=== PATIENT | male | born 1945 | race African-American/Black ===

== ENCOUNTER 2017-01-10 08:56 | Inpatient (IN) | payer OTHER ==
[~2017-01-10] VITALS: Ht 182.9 cm; Wt 108.7 kg
[2017-01-10] VITALS (14 sets, daily range): BP systolic 74–133; BP diastolic 36–93
--- NOTE | ~2017-01-10 | CATHLAB ---
[facility] [place] [address] INVASIVE PROCEDURE REPORT Name: CARMENAna Davin Room #: 208-P [facility] IN [facility]#: [id number] Admission: 01/10/17 Attend Phys: Dimitry Park, Discharge: Date of : 47 Date of Service: 01/10/17 1113 Report #: [id number] THIS REPORT FOR: //name// CC: Dimitry Kurtz REASON FOR STUDY: Inferior myocardial infarction. DESCRIPTION OF PROCEDURE: The potential benefits and risks of the procedure were discussed at length with the patient who understood. Full written and informed consent was obtained. The patient was brought into the catheterization suite in the setting of an acute inferior myocardial infarction associated with right ventricular involvement, complete heart block and hypotension. The right groin was prepped and draped in a sterile fashion. He was sedated with intravenous Versed. 1% Xylocaine was used as local anesthetic. A 6-[place] sheath was placed in the right femoral artery by the modified Seldinger technique. Left heart catheterization was performed with a 6-[place]an angled pigtail catheter. A single plain ventriculogram was performed in the ZENDEJAS view. Pullback gradients were measured across the aortic valve. Selective coronary angiography was performed with a 6-S[place]an left and right 4 cm Susan coronary catheter. All diagnostic catheters removed. Attention was turned to a complete occlusion of the right coronary. The patient was premedicated with heparin, Integrilin, aspirin and prasugrel. A 0.014-inch Luge wire was used to traverse the distal right coronary occlusion, which was then predilated with a 3.0 x 15 mm Euphora balloon. MARIA ALEJANDRA 3 flow was restored in the vessel. The balloon was removed and the distal right coronary was stented with a 4.0 x 22 mm Resolute medicated stent, postdilated with a 4.0 x 15 mm Trek NC balloon in upwards of 22 atmospheres. MARIA ALEJANDRA 3 flow was restored in the vessel. All catheters removed. Hand injection was performed to the right groin sheath with placement of a Mynx device upon removal of the sheath. The patient remained in excellent condition at the conclusion of the procedure with resolved heart block and hypotension. LEFT HEART HEMODYNAMICS: Left ventricular systolic pressure of 140. Left ventricular end diastolic pressure of 22. Aortic valve, no gradient was present on pullback across the aortic valve. ANGIOGRAPHY: LEFT VENTRICULOGRAM: Ventriculography demonstrated mild inferior wall hypokinesis. The ejection fraction was estimated at 45%. SELECTIVE CORONARY ANGIOGRAPHY: Right coronary: Right coronary exhibited moderate plaquing in its proximal and [facility] [address] [place] [address] INVASIVE PROCEDURE REPORT Name: Ana MORALES Room #: 208-P [facility]#: [id number] Admission: 01/10/17 Attend Phys: Dimitry Park, Discharge: Date of : 47 Date of Service: 01/10/17 1113 Report #: [id number] mid portions. The distal right coronary was occluded. Left main: Left main exhibited mild plaquing. LAD: The LAD had been stented in its mid portion. The stent was widely patent. The distal LAD near the apex exhibited a 95% stenosis. The vessel beyond this was small in caliber. Circumflex: Circumflex was moderate in size and nondominant and comprised of 2 marginal branches. There was a large trifurcating ramus branch, vessel exhibited moderate plaquing. POSTANGIOPLASTY AND STENTING: The distal right coronary was ballooned and then stented with a 4.0 x 22 mm Resolute medicated stent, postdilated close to 4.2 mm with a noncompliant balloon. 0% residual stenosis remained with MARIA ALEJANDRA 3 flow restored in the vessel. SUMMARY: 1. Szul-mm-bufulpmb left ventricular dysfunction with inferior wall hypokinesis. The ejection fraction was estimated at 45%. 2. Mild plaquing of the left main. 3. The LAD exhibited a previously placed stent, which was widely patent (4.0 x 22 mm Resolute). 4. Fras-xr-qjhmqwqm plaquing in the nondominant circumflex. 5. The right coronary was occluded distally and successfully stented with a 4.0 x 22 mm Resolute medicated stent, postdilated to 4.4 mm with a noncompliant balloon. By: 1113 1229 Dimitry Park MD, FACC /nt
--- NOTE | ~2017-01-10 | EKG ---
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
--- NOTE | ~2017-01-10 | EKG ---
[address] [address] ELECTROCARDIOGRAM REPORT Name: Ana MORALES Davin Room #: 208-P ADM IN M.R.#: [id number] Admission: 01/10/17 Attend Phys: Dimitry Park MD, Discharge: Date of : 47 Report #: [id number] THIS REPORT FOR: //name// 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 Electronically Signed On 01-11-2017 22:22:20 CDT by Magdiel Ellis [email or web address] <ELECTRONICALLY SIGNED> By: Magdiel Ellis MD 01/11/17 2222 0858 0858 MD SHEBA Vidales
--- NOTE | ~2017-01-10 | EKG ---
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 : 1945 Requested By: Micah Garcia Order Number: [id number] MD: Magdiel Ellis Measurements Intervals [place] Rate: 102 P: 20 GA: 182 QRS: -37 QRSD: 81 T: -61 QT: 364 QTc: 475 Interpretive Statements Sinus tachycardia Abnormal R-wave progression, late transition Inferior infarct, age indeterminate Baseline wander in lead(s) V3 Compared to ECG 01/11/2017 07:46:41 Sinus rhythm no longer present Myocardial infarct finding still present Electronically Signed On 01-14-2017 9:50:54 CDT by Magdiel Ellis [email or web address] <ELECTRONICALLY SIGNED> By: Magdiel Ellis MD 01/14/17949 55 55 Magdiel Ellis MD /EPI
--- NOTE | ~2017-01-10 | D ---
[facility] [place] [address] [place] [address] DISCHARGE SUMMARY Name: Ana MORALES Room #: 208-P [facility] IN M.R.#: [id number] Admission: 01/10/17 Attend Phys: Dimitry Park MD, Discharge: 01/13/17 Date of : 47 Report #: [id number] THIS REPORT FOR: //name// CC: Dimitry Park Juan R Kurtz FINAL DIAGNOSES: 1. Acute inferior wall myocardial infarction, status post angioplasty. 2. Transient heart block. 3. Hypertension. 4. Hypercholesterolemia. HOSPITAL COURSE: The patient presented with chest pains, diagnosed with an acute inferior wall myocardial infarction. He did have heart block during his initial presentation. He was taken to the cardiac rd lab technician with Dr. Park. He was found to have a patent LAD stent. There was a severe stenosis in the apical LAD, medical therapy was recommended. The RCA was occluded, undergoing placement of a drug-eluting stent. His heart block resolved and he has remained hemodynamically stable on the telemetry floor. He did have some atypical shoulder pain and chest pain post-procedure. He has been ambulating on the floor without any complaints. FINAL DISPOSITION: He will continue with the aspirin 81 mg, Brilinta 90 mg twice a day, Lopressor 25 mg twice a day, losartan 25 mg daily, Lipitor 40 mg daily. He is given instructions for followup in the office in 2 weeks' time. <ELECTRONICALLY SIGNED> By: Micah Garcia MD 01/14/17 0806 0855 1145 Micah Garcia MD /maikel
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
--- NOTE | ~2017-01-10 | 2DMMODE ---
[facility] [address] [place] [address] 2 D/M-MODE ECHOCARDIOGRAM Name: Ana MORALES Room #: 208-P [facility] IN [facility]#: [id number] Admission: 01/10/17 Attend Phys: Dimitry Park, Discharge: Date of : 47 Date of Service: 01/12/17 1005 Report #: [id number] THIS REPORT FOR: //name// APPROVED REPORT Study performed: 01/12/2017 08:39:02 EXAM: Comprehensive 2D, Doppler, and color-flow Echocardiogram Patient Location: Echo lab Room #: 208 Blood Pressure: 156/95 mmHg HR: 88 bpm Other Information Study Quality: Adequate Indications CAD Patient states previous CA, stent x1 2D Dimensions RVDd: 34.21 mm LVEF(%): 48.31 (>50%) IVSd: 12.40 (7-11mm) LVOT Diam: 21.84 (18-24mm) LVDd: 42.79 mm PWd: 12.31 (7-11mm) Ascending Ao: 34.02 (22-36mm) LVDs: 32.48 (25-40mm) Aortic Root: 32.16 mm IVC: 11.00 mm Elkins's LVEF: 48.31 % Volumes Left Atrial Volume (Systole) Single Plane 4CH: 36.87 mL Single Plane 2CH: 32.81 mL LA ESV Index: 16.00 mL/m2 Aortic Valve AoV Peak Pavan.: 1.46 m/s AO Peak Gr.: 8.57 mmHg LVOT Max P.78 mmHg LVOT Max V: 0.83 m/s GAYLE Vmax: 2.13 cm2 Mitral Valve E/A Ratio: 0.[address] [facility] [address] [place] [address] 2 D/M-MODE ECHOCARDIOGRAM Name: MORALESAna Davin Room #: 208-P [facility] IN [facility]#: [id number] Admission: 01/10/17 Attend Phys: Dimitry Park, Discharge: Date of : 47 Date of Service: 01/12/17 1005 Report #: [id number] MV Decel. Time: 194.62 ms MV E Max Pavan.: 0.64 m/s MV A Pavan.: 1.19 m/s MV PHT: 56.44 ms IVRT: 138.41 ms Pulmonary Valve PV Peak Pavan.: 1.03 m/s PV Peak Gr.: 4.21 mmHg Pulmonary Vein P Vein S: 50.5 m/s P Vein A: 30.35 m/s P Vein D: 59.4 m/s P Vein A Dur.: 107.3 msec Tricuspid Valve RAP Estimate: 5.00 mmHg Left Ventricle The left ventricle is normal size. Regional wall motion abnormalities are noted. Borderline concentric left ventricular hypertrophy. There is no ventricular septal defect visualized. Left ventricular systolic function is mildly decreased. No left ventricle thrombus noted on this study. LVEF is 45-50%. Grade I - abnormal relaxation pattern. Right Ventricle The right ventricle is normal size. There is normal right ventricular wall thickness. The right ventricular systolic function is normal. Atria The left atrium size is normal. The interatrial septum is intact with no evidence for an atrial septal defect. The right atrium size is normal. Aortic Valve The Aortic valve is sclerotic. No aortic regurgitation is present. There is no aortic valvular vegetation. There is no aortic valvular stenosis. Mitral Valve The mitral valve is normal in structure. Trace mitral regurgitation. There is no evidence of mitral valve vegetations. No evidence of mitral valve stenosis. There is no evidence of mitral valve prolapse. Tricuspid Valve [address] [address] 2 D/M-MODE ECHOCARDIOGRAM Name: Ana MORALES Room #: 208-P [facility]#: [id number] Admission: 01/10/17 Attend Phys: Dimitry Park, Discharge: Date of : 47 Date of Service: 01/12/17 1005 Report #: [id number] The tricuspid valve is normal in structure. There is no tricuspid valve stenosis. Trace tricuspid regurgitation. There is no tricuspid valve vegetations. Pulmonic Valve The pulmonary valve is normal in structure. There is no pulmonic valvular stenosis. Trace pulmonic regurgitation. There is no pulmonic valve vegetations. Great Vessels The aortic root is normal in size. The ascending aorta is normal in size. IVC is normal in size and collapses >50% with inspiration. The pulmonary artery is normal. Pericardium There is no pericardial effusion. There is no pleural effusion. <Conclusion> The left ventricle is normal size. Regional wall motion abnormalities are noted. LVEF is 45-50%. The Aortic valve is sclerotic. The mitral valve is normal in structure. Trace mitral regurgitation. The tricuspid valve is normal in structure. Trace tricuspid regurgitation. Trace pulmonic regurgitation. <ELECTRONICALLY SIGNED> By: Alvino Ceballos MD 01/12/17 1005 1005 1005 Alvino Ceballos MD /INF
[~2017-01-10 08:56] MED LIST: AGGRENOX 25 MG1 EACH PO; ASPIRIN325 PO; CLOPIDOGREL75 MG PO; FLEXERIL PO; IBUPROFEN 200200 M1; IBUPROFEN 200200 M1 PO; LIPITOR 10 MG10 M1 PO; LISINOPRIL10 MG PO; LOPRESSOR25 PO; TOPROL XL25 MG PO
[2017-01-10 09:11] LABS: POC CA IONIZED 4.5 mg/dL (4.5-5.3); POC CREATININE 1.2 mg/dL (0.6-1.3); POC HEMOGLOBIN 15.6 g/dL (14.0-18.0)
[2017-01-10 09:28] LABS: HEMATOCRIT 44.8 % (42.0-52.0); HEMOGLOBIN 15.2 gm/dL (14.0-18.0); MCH 33.3 pg (26.0-34.0); MCHC 33.9 g/dL (28.0-37.0); MCV 98.2 fL (80.0-100.0); PLATELET COUNT 166 thou/uL (150-400); RBC 4.56 mil/uL (4.50-6.00); RDW 14.2 % (10.5-14.5); WBC 6.4 thou/uL (4.0-11.0)
[2017-01-10] MEDS ORDERED: COZAAR 25 MG TA25 M1 PO (09:31)
[2017-01-10] MEDS ORDERED: RANEXA500 MG PO (09:31)
[2017-01-10 09:33] LABS: ANION GAP 9 mmol/L (7-16); BUN 21 mg/dL (7-18); CALCIUM 8.2 mg/dL (8.5-10.1); CHLORIDE 107 mmol/L (98-107); CO2 23 mmol/L (21-32); CREATININE 1.3 mg/dL (0.7-1.3); GLUCOSE 121 mg/dL (74-106); POTASSIUM 4.1 mmol/L (3.5-5.1); SODIUM 139 mmol/L (136-145)
[2017-01-10 09:39] LABS: MANUAL DIFF YES
[2017-01-10 09:44] LABS: ALBUMIN 3.6 g/dL (3.4-5.0); ALKALINE PHOSPHATASE 62 U/L (46-116); MAGNESIUM 1.8 mg/dL (1.8-2.4); NT-PRO BRAIN NAT PEPTIDE 123 pg/mL (<300); SGOT 26 U/L (15-37); SGPT 25 U/L (30-65); TOTAL BILIRUBIN 0.4 mg/dL (<0.1-1.0); TOTAL PROTEIN 6.8 g/dL (6.4-8.2); TROPONIN-I < 0.04 ng/mL (<0.04-0.07)
[2017-01-10 09:45] LABS: APTT 23.7 Seconds (24.5-32.8); PROTIME 10.8 Seconds (9.3-11.4)
[2017-01-10 09:52] LABS: ABSOLUTE NEUTROPHILS 3.4 thou/uL (1.4-8.2); ANISOCYTOSIS 1+; TOTAL CELL COUNT 100
[2017-01-11 00:15] VITALS: BP 128/79
[2017-01-11 03:00] VITALS: BP 131/76
[2017-01-11 03:03] VITALS: BP 131/76
[2017-01-11 03:10] LABS: HEMATOCRIT 41.1 % (42.0-52.0); HEMOGLOBIN 13.7 gm/dL (14.0-18.0); MCH 32.9 pg (26.0-34.0); MCHC 33.4 g/dL (28.0-37.0); MCV 98.4 fL (80.0-100.0); RBC 4.18 mil/uL (4.50-6.00); RDW 14.4 % (10.5-14.5)
[2017-01-11 03:27] LABS: ANION GAP 7 mmol/L (7-16); BUN 18 mg/dL (7-18); CALCIUM 7.9 mg/dL (8.5-10.1); CHLORIDE 107 mmol/L (98-107); CHOLESTEROL 122 mg/dL (<200); CO2 25 mmol/L (21-32); CREATININE 1.2 mg/dL (0.7-1.3); GLUCOSE 98 mg/dL (74-106); HDL CHOLESTEROL 29 mg/dL (>40); LDL CHOLESTEROL 73 mg/dL (<100); POTASSIUM 3.9 mmol/L (3.5-5.1); SODIUM 139 mmol/L (136-145); TC:HDL 4.2 Ratio (Not establshd); TRIGLYCERIDE 102 mg/dL (<150); VLDL 20 mg/dL (<40)
[2017-01-11 03:36] LABS: SERUM ASSESSMENT Clear
[2017-01-11 08:33] VITALS: BP 133/89
[2017-01-11 17:45] VITALS: BP 151/89
[2017-01-11 19:58] VITALS: BP 145/85
[2017-01-12 03:53] VITALS: BP 139/93
[2017-01-12 07:15] VITALS: BP 156/95
[2017-01-12 08:00] VITALS: BP 156/95
[2017-01-12 11:10] VITALS: BP 138/82
[2017-01-12 15:55] VITALS: BP 138/83
[2017-01-12 19:35] VITALS: BP 139/92
[2017-01-13 04:07] LABS: HEMATOCRIT 41.6 % (42.0-52.0); HEMOGLOBIN 14.1 gm/dL (14.0-18.0); MCH 33.2 pg (26.0-34.0); MCHC 33.9 g/dL (28.0-37.0); MCV 97.8 fL (80.0-100.0); RBC 4.25 mil/uL (4.50-6.00); RDW 13.7 % (10.5-14.5); WBC 9.8 thou/uL (4.0-11.0)
[2017-01-13 04:10] LABS: CALCIUM 8.6 mg/dL (8.5-10.1); CREATININE 1.2 mg/dL (0.7-1.3); POTASSIUM 3.7 mmol/L (3.5-5.1)
[2017-01-13 04:22] VITALS: BP 112/78
[2017-01-13 08:13] VITALS: BP 128/83
[2017-01-13] MEDS ORDERED: LOPRESSOR25 PO (08:38)
[2017-01-13] MEDS ORDERED: ASPIR 8181 MG PO (08:38)
[2017-01-13] MEDS ORDERED: BRILINTA90 MG PO (08:40)
[2017-01-13 09:44] VITALS: BP 128/83
== END 2017-01-13 12:35 | disposition home or self-care (01) | DRG 247 ==
LOC: ER 08:56 → 2N 09:32 → EROBS 09:46 → 2N 09:46
PROVIDERS: Emergency Medicine; Internal Medicine; Internal Medicine Cardiovascular Disease
PROC: B2151ZZ Fluoroscopy of Left Heart using Low Osmolar Contrast (ICD-10-PCS; principal; 2017-01-10)
PROC: 027034Z Dilation of Coronary Artery, One Artery with Drug-eluting Intraluminal Device, Percutaneous Approach (ICD-10-PCS; principal; 2017-01-10)
PROC: B2111ZZ Fluoroscopy of Multiple Coronary Arteries using Low Osmolar Contrast (ICD-10-PCS; principal; 2017-01-10)
PROC: 4A023N7 Measurement of Cardiac Sampling and Pressure, Left Heart, Percutaneous Approach (ICD-10-PCS; principal; 2017-01-10)
DX: I21.11 ST elevation (STEMI) myocardial infarction involving right coronary artery (principal); I47.1 Supraventricular tachycardia; I44.2 Atrioventricular block, complete; E78.00 Pure hypercholesterolemia, unspecified; E87.5 Hyperkalemia; I25.10 Atherosclerotic heart disease of native coronary artery without angina pectoris; I25.5 Ischemic cardiomyopathy; I10 Essential (primary) hypertension; E78.5 Hyperlipidemia, unspecified; M19.90 Unspecified osteoarthritis, unspecified site; Z95.5 Presence of coronary angioplasty implant and graft; Z85.46 Personal history of malignant neoplasm of prostate; Z87.891 Personal history of nicotine dependence; Z83.3 Family history of diabetes mellitus
CPT/HCPCS: 10081

== ENCOUNTER → 2019-08-11 | Outpatient (CLI) | payer OTHER ==
[~2019-08-11] VITALS: Ht 185.4 cm; Wt 99.8 kg
[~2019-08-11] MED LIST changes: +ASPIR 8181 MG PO; +ASPIR-LOW81 MG PO; +BRILINTA90 MG PO; +COZAAR 25 MG TA25 M1 PO; +COZAAR100 MG PO; +EFFIENT10 MG PO; +RANEXA500 MG PO
--- NOTE | 2019-08-12 14:07 | PATH ---
[facility] [place] [address] PATHOLOGY RPT PROCEDURE Name: MORALESAna Room #: REG ROSIE Huynh.#: [id number] Admission: 08/11/19 Date of : 47 Discharge: Report #: [id number] Path Case #: [id number] [facility] Accession Number: [id number] . 01 Material submitted: . PART A: colon - POLYP AT MID-TRANSVERSE COLON. Modifiers: mid, transverse PART B: colon - POLYP AT PROXIMAL ASCENDING. Modifiers: proximal, ascending . 01 Clinical history: . Screening . 02 Diagnosis: A. Polyp, at mid transverse colon, endoscopic biopsy: - Tubular adenoma. - Negative for high-grade dysplasia. . B. Polyp, at proximal ascending colon, endoscopic biopsy: - Tubular adenoma. - Negative for high-grade dysplasia. . (IUV:jeannie; 08/12/2019) MBR 08/12/2019 1330 Local . 02 Electronically signed: . Sandra Esteban MD, Pathologist NPI- [id number] . 01 Gross description: . A. Received in formalin labeled "Ana Morales, polyp at mid transverse colon," are 4 segments of stephens soft tissue measuring 1.0 x 0.9 x 0.3 cm in aggregate dimensions and ranging from 0.3 to 0.6 cm in maximum dimension. The specimen is submitted entirely in cassette A1. . B. Received in formalin labeled "Ana Morales, polyp at proximal ascending," are multiple segments of stephens soft tissue measuring 2.0 x 0.6 x 0.3 cm in aggregate dimensions. The specimen is filtered and entirely submitted in cassette B1. (TSD; 08/11/2019) TOB/TOB 08/11/20191951 Local . 02 Pathologist provided ICD-10: D12.3, D12.2 . 02 CPT . 048097, 200820 Specimen Comment: A courtesy copy of this report has been sent to [phone], [phone], [place] [address] PATHOLOGY RPT PROCEDURE Name: Ana MORALES [facility] [id number] Admission: 08/11/19 Date of : 47 Discharge: Report #: [id number] Path Case #: [id number] Specimen Comment: [id number] Specimen Comment: Report sent to / DR MALIK Performed at: [address], [place], [place] [id number] MD Renan Small MD Phone: [phone] Performed at: [address] [id number] MD Sandra Esteban MD Phone: [phone]
--- NOTE | 2019-08-12 17:14 | P ---
[facility] [place] [address] PROCEDURE REPORT Name: CARMENAna Room #: REG [facility]#: [id number] Admission: 08/11/19 Attend Phys: Jarret Drake MD Discharge: Date of : 47 Report #: [id number] THIS REPORT FOR: //name// CC: Jarret Kurtz DATE OF SERVICE: 08/11/2019 BRIEF HISTORY: The patient is a 74-year-old male for average-risk screening colonoscopy. It has been many more than 10 years since his last colonoscopy. PREOPERATIVE DIAGNOSIS: Average-risk screening colonoscopy. POSTOPERATIVE DIAGNOSES: 1. Colon polyps x 2. 2. Internal hemorrhoids. MEDICATIONS: Deep sedation with propofol per Anesthesia. SPECIMENS: 1. Mid transverse colon polyp. 2. Polyp from proximal ascending colon. ESTIMATED BLOOD LOSS: 3 mL. PROCEDURE: Colonoscopy to cecum and terminal ileum with snare polypectomy and biopsy. FINDINGS: Prior to propofol sedation, procedure of colonoscopy discussed with the patient as well as potential risks and its complications. He indicates he understands and desires to proceed. DESCRIPTION OF PROCEDURE: With the patient in left lateral decubitus position, digital examination was completed, which revealed no abnormalities. Subsequently, the Olympus video colonoscope was introduced in the rectum, advanced under direct vision to the cecum, done with minimal difficulty. The cecum was identified by the ileocecal valve and the appendiceal orifice. I was able to visualize the distal segment of terminal ileum, which was inspected and noted to be unremarkable. At that point, the scope was slowly withdrawn and careful circumferential views obtained. Upon slow withdrawal of the scope, there were some limitations of the prep. However, we were able to irrigate and remove most of this material and overall a good prep was obtained after cleanup. The mucosa was within normal limits, normal vascular pattern, normal light reflex. As we withdrew the scope, an 8-mm sessile polyp was seen in the proximal ascending colon. This was removed by cold snare polypectomy. Scope [facility] [address] [place] [address] PROCEDURE REPORT Name: Ana MORALES Room #: REG [facility]#: [id number] Admission: 08/11/19 Attend Phys: Jarret Drake MD Discharge: Date of : 47 Report #: [id number] was further withdrawn and no additional abnormalities were noted in the mid transverse colon, at which point a diminutive polyp was seen and removed with biopsy forceps. The scope was withdrawn further through the remainder of the colon and no additional neoplastic lesions were seen. The mucosa was within normal limits, normal vascular pattern, normal light reflex. Scope was withdrawn in the rectum, no abnormalities were seen. However, upon retroflexion, moderate internal hemorrhoids were seen. Scope was withdrawn. The patient tolerated the procedure well. CONDITION OF THE PATIENT UPON DISCHARGE: Following procedure, the patient was drowsy, arousable, and conversant and will be discharged to home when fully ambulatory. INSTRUCTIONS TO THE PATIENT AND FAMILY AT THE TIME OF DISCHARGE: two polyps are identified. We will follow up on pathology, but they do have an adenomatous appearance. I would suggest return in 5 years for followup colon exam. Last colonoscopy was more than 10 years ago. Withdrawal time from the cecum was 16 minutes 57 seconds. <ELECTRONICALLY SIGNED> By: Jarret Drake MD 08/12/19 1714 1038 1207 Jarret Drake MD /nt
== END | disposition home or self-care (01) ==
LOC: GI 08:33
DX: Z12.11 Encounter for screening for malignant neoplasm of colon (principal); D12.2 Benign neoplasm of ascending colon; D12.3 Benign neoplasm of transverse colon; K64.8 Other hemorrhoids; I10 Essential (primary) hypertension; E78.5 Hyperlipidemia, unspecified; I25.2 Old myocardial infarction; I73.9 Peripheral vascular disease, unspecified; Z85.528 Personal history of other malignant neoplasm of kidney; Z98.41 Cataract extraction status, right eye; Z98.42 Cataract extraction status, left eye; Z79.899 Other long term (current) drug therapy; Z86.73 Personal history of transient ischemic attack (TIA), and cerebral infarction without residual deficits; Z87.891 Personal history of nicotine dependence; Z85.46 Personal history of malignant neoplasm of prostate
CPT/HCPCS: 62110; 62900

== ENCOUNTER → 2020-01-23 | Outpatient (CLI) | payer OTHER | LOC: SJCVC 10:40 | DX: R94.31 Abnormal electrocardiogram [ECG] [EKG] (principal); I11.9 Hypertensive heart disease without heart failure; I25.10 Atherosclerotic heart disease of native coronary artery without angina pectoris; Z79.899 Other long term (current) drug therapy; Z87.891 Personal history of nicotine dependence ==

== ENCOUNTER → 2020-07-25 | Outpatient (CLI) | payer OTHER | LOC: SJCVCIMAG 09:19 | PROVIDERS: ATTEND Internal Medicine Cardiovascular Disease | DX: R94.31 Abnormal electrocardiogram [ECG] [EKG] (principal); I42.9 Cardiomyopathy, unspecified; R60.9 Edema, unspecified; C64.9 Malignant neoplasm of unspecified kidney, except renal pelvis; I25.10 Atherosclerotic heart disease of native coronary artery without angina pectoris; R42 Dizziness and giddiness; I10 Essential (primary) hypertension; E78.00 Pure hypercholesterolemia, unspecified; Z79.82 Long term (current) use of aspirin; Z79.899 Other long term (current) drug therapy; Z95.5 Presence of coronary angioplasty implant and graft; Z87.891 Personal history of nicotine dependence ==

== ENCOUNTER 2020-12-26 13:00 | Inpatient (IN) | payer OTHER ==
[~2020-12-26] VITALS: Ht 185.4 cm; Wt 99.8 kg
[2020-12-26 14:25] LABS: HEMOGLOBIN 14.8 gm/dL (14.0-18.0); WBC 6.5 thou/uL (4.0-11.0)
[2020-12-26 14:30] LABS: HEMATOCRIT 44.2 % (42.0-52.0); MCH 34.1 pg (26.0-34.0); MCHC 33.4 g/dL (28.0-37.0); MCV 101.9 fL (80.0-100.0); PLATELET COUNT 141 thou/uL (150-400); RBC 4.34 mil/uL (4.50-6.00); RDW 13.8 % (10.5-14.5)
[2020-12-26 14:35] LABS: CALCIUM 8.8 mg/dL (8.5-10.1); CREATININE 1.5 mg/dL (0.7-1.3); POTASSIUM 4.8 mmol/L (3.5-5.1)
[2020-12-26 14:43] LABS: ALBUMIN 3.6 g/dL (3.4-5.0); TOTAL BILIRUBIN 0.5 mg/dL (0.2-1.0); TOTAL PROTEIN 7.3 g/dL (6.4-8.2)
[2020-12-26 14:44] LABS: URINE BILIRUBIN NEGATIVE (Negative); URINE BLOOD TRACE (Negative); URINE CLARITY CLEAR; URINE COLOR YELLOW; URINE GLUCOSE-RANDOM* NEGATIVE (Negative); URINE KETONES NEGATIVE (Negative); URINE LEUKOCYTES-REFLEX NEGATIVE (Negative); URINE NITRITE-REFLEX NEGATIVE (Negative); URINE PROTEIN (DIPSTICK) NEGATIVE (Negative); URINE SPECIFIC GRAVITY 1.015 (1.005-1.035)
[2020-12-26 14:50] LABS: APTT 23.4 Seconds (24.5-32.8); PROTIME 10.9 Seconds (9.3-11.4)
[2020-12-26 15:04] LABS: ABSOLUTE NEUTROPHILS 4.3 thou/uL (1.4-8.2); ANISOCYTOSIS SLIGHT; ATYPICAL LYMPHS 1 %
[2020-12-26 19:16] VITALS: BP 163/88
[2020-12-26 21:41] VITALS: BP 145/79
[2020-12-26 21:46] VITALS: BP 144/83
--- NOTE | 2020-12-27 02:20 | NUR ---
PT ADMITTED TO THE UNIT WITH C/O INTRACTABLE BACK PAIN.PT REPORTS HE FELL ON HIS BACK DOWN 4 STAIRS ON THURSDAY AND HAD NO ISSUES AFTER.HE WAS MOPPING THE FLOOR ON THURSDAY AND WOKEUP YESTERDAY WITH SPASMS IN THE BACK.BACK PAIN COMES AND GOES AND WORSEN BY MOVEMENT.PT IS A/O X2.PT IS ABLE TO TO ANSWER SIMPLE QUESTIONS.PT UNABLE TO SIGN CONSENT FORMS .WILL ENDORSE TO DAY NURSE.IV ACCESS ON RT AC SL.PT SLEEPING MOST OF THE NIGHT AND MOANS OR C/O PAIN WHEN MOVED.WILL CONTINUE TO MONITOR
[2020-12-27 05:43] LABS: CALCIUM 8.7 mg/dL (8.5-10.1); CREATININE 1.5 mg/dL (0.7-1.3); POTASSIUM 4.6 mmol/L (3.5-5.1)
[2020-12-27 07:45] VITALS: BP 166/88
[2020-12-27 07:55] VITALS: BP 166/88
[2020-12-27 15:50] VITALS: BP 146/101
--- NOTE | 2020-12-27 15:52 | NUR ---
PT ADMITTED RELATED TO INTRACTABLE BACK PAIN. CM REVIEWED CHART AND SPOKE WITH CARE TEAM. CM MET WITH PT AND SPOUSE AT BEDSIDE THIS DAY. PT WAS SLEEPING AND PT'S SPOSUE COMPLETED ASSESSMENT. SHE INDICATED THAT THEY RESIDE IN A TRI LEVEL HOUSE WITH NO STEPS TO ENTER BUT 6 STEPS TO KITCHEN LIVING ROOM AREA, AND 6 STEPS TO BEDROOOM LEVEL. SPOUSE INDICATED PT HAS A CANE BUT HADN'T USED IT [facility] [place] [facility]. PT HAD BEEN INDEPEDENT WITH GAIT AND ADLS [facility] [place] [facility]. SPOUSE INDICATED THAT THEY WERE SET UP TO START OP TREATMENT AT [facility] PRIOR TP ADMISSION AND THAT SHE THINKS SHE WOULD PREFER FOR FOR PT TO DC TO THOSE SERVICES UPON DC. CM TO NOTIFY CARE TEAM OF PREFERENCE. PT MAY BE MEDCIALLY STABLE TO DC HOME TOMORROW.
[2020-12-27 15:55] VITALS: BP 146/101
--- NOTE | 2020-12-27 16:47 | NUR ---
PT CARE ASSUMED AT 0700. ASSESSMENTS CHARTED. MEDICATIONS CHARTED. RAC IV. URINAL/BSC. PHYSICAL THERAPY WALKED WITH PT WITH A CANE, BALANCE IMPROVED. PT'S CONCERNED AT FIRST THAT PT WAS NOT WAKING UP FOR HER. THEN SHE WAS CONCERNED THAT PT APPEARED NOT TO RECOGNIZE HER, DESPITE PT HAVING DEMENTIA. MORPINE NOT ADMINISTERED TO PT.
[2020-12-27 20:19] VITALS: BP 116/80
--- NOTE | 2020-12-28 05:15 | NUR ---
Pt. rested quietly at intervals during the night when checked on during frequent rounds. He pulled his iv out and refused to have another one inserted. Mayuri ANTHONY notified and ok to leave iv out. Pt. offers no c/o pain. Bed alarm is on.
[2020-12-28 08:00] VITALS: BP 121/65
[2020-12-28 08:54] VITALS: BP 155/95
[2020-12-28] MEDS ORDERED: BACLOFEN 10MG T10 MG PO (10:47)
[2020-12-28 10:57] VITALS: BP 155/95
--- NOTE | 2020-12-28 11:03 | NUR ---
ASSUMED CARE OF PATIENT AT SHIFT CHANGE; 0700. ASSESSMENT CHARTED. MEDICATIONS ADMINISTERED PER EMAR. BP ELEVATED. PATIENT REFUSED HIS BP MEDICATION THIS A.M. ALONG WITH HIS BACOFLEN. PATIENT DOES C/O BACK PAIN BUT IS REFUSING ALL MEDS THIS A.M. PATIENT IS INCREASINGLY AGITATED AND WANTING TO LEAVE. PATIENT IS WALKING AROUND UNIT LOOKING FOR HIS . WHEN HIS ARRIVED PATIENT KEPT INSISTING ON LEAVING. PROVIDER WAS NOTIFIED OF ALL EVENTS AND WORKING ON DISCHARGE FOR PATIENT. CM WORKING ON SVCS FOR PATIENT WELL. NO OTHER NEEDS VOICED. PATIENT TO DISCHARGE TODAY. IV WAS PULLED LAST NIGHT. WILL CONTINUE TO MONITOR UNTIL DISCHARGE.
[2020-12-28 11:48] VITALS: BP 155/95
--- NOTE | 2020-12-28 13:14 | NUR ---
CARE TEAM INDICATED THAT PT IS MEDICALLY STABLE TO DC HOME THIS DAY WITH HH SERVICES. CM MET WITH PT AND SPOUSE AT BEDSIDE THIS DAY. CM MET WITH PT AND SPOUSE AT BEDSIDE THIS DAY. THEY ARE AGREEABLE TO HH SERICES UPON DC. NO PREFERENCE INDICATED. REFERRAL SENT TO [facility]. THEY ARE ABLE TO ACCEPT PT AND WILL CONTACT HIM TO SET UP SERVICES. SPOUSE TO PROVIDE TRANSPORT HOME. NO OTHER CM INTERVENTION INDICATED. CASE CLOSED.
[2020-12-30] MEDS ORDERED: NAMENDA 5 MG TAB5 M1 PO (20:26)
== END 2020-12-28 12:28 | disposition home health service (06) | DRG 552 ==
LOC: ER 13:00 → 4W 21:24
PROVIDERS: Physician Assistant; ADMIT Hospitalist; ATTEND Hospitalist
DX: M54.9 Dorsalgia, unspecified (principal); E78.5 Hyperlipidemia, unspecified; R26.89 Other abnormalities of gait and mobility; I10 Essential (primary) hypertension; R42 Dizziness and giddiness; F03.90 Unspecified dementia, unspecified severity, without behavioral disturbance, psychotic disturbance, mood disturbance, and anxiety; Z90.5 Acquired absence of kidney; Z85.46 Personal history of malignant neoplasm of prostate; Z95.5 Presence of coronary angioplasty implant and graft; Z98.42 Cataract extraction status, left eye; Z98.41 Cataract extraction status, right eye; I25.2 Old myocardial infarction; Z87.891 Personal history of nicotine dependence; Z79.82 Long term (current) use of aspirin; Z79.899 Other long term (current) drug therapy; W10.8XXA Fall (on) (from) other stairs and steps, initial encounter; Y93.89 Activity, other specified; Y92.89 Other specified places as the place of occurrence of the external cause; Y99.8 Other external cause status
CPT/HCPCS: 10040

== ENCOUNTER 2020-12-30 23:48 | Inpatient (IN) | payer OTHER ==
[~2020-12-30] VITALS: Ht 185.4 cm; Wt 98.6 kg
[~2020-12-30 23:48] MED LIST changes: +BACLOFEN 10MG T10 MG PO; +NAMENDA 5 MG TAB5 M1 PO
[2020-12-31] MEDS ORDERED: BACLOFEN 10MG T10 MG PO (00:20)
[2020-12-31] MEDS ORDERED: ASA81BEC PO (00:21)
[2020-12-31] MEDS ORDERED: LIPITOR40 MG PO (00:21)
[2020-12-31] MEDS ORDERED: COZAAR100 MG PO (00:22)
[2020-12-31] MEDS ORDERED: NAMENDA 5 MG TAB5 M1 PO (00:23)
[2020-12-31 01:07] VITALS: BP 145/92
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
[2020-12-31 10:23] VITALS: BP 149/96
[2020-12-31 12:30] VITALS: BP 149/96
--- NOTE | 2020-12-31 16:48 | NUR ---
Assumed pt care at 0700. pt was Alert and Oriented to person, place and situation. Calm and co-operative with care. Denies si/hi, Denies pain. Assessments completed, vss. Took meds whole, no difficulty noted. participated in groups. There is no sign of acute distress noted upon assessments. Ambulates with walker. Pt was continent of bowel and bladder all through this shift. At time pt is eating dinner. WILL CONTINUE TO MONITOR.
[2020-12-31 19:56] VITALS: BP 114/66
[2020-12-31 20:00] VITALS: BP 114/66
--- NOTE | 2021-01-01 02:26 | NUR ---
PATIENT WAS ASLEEP IN BED WHEN ASSUMED CARE OF PATIENT AT 1900. PATIENT WAS AWAKENED BUT REFUSED ASSESSMENT. HE DID TAKE HIS MEDS AFTER SOME ENCOURAGEMENT. HE STATES THE DR IS GIVING HIM TOO MUCH MEDICATION AND HE DOESN'T NEED IT. HE TOOK HIS MEDS WHOLE WITH WATER. PATIENT WAS GROUCHY FROM BEING WOKE UP. ENCOURAGED HIM TO DRINK MORE WATER BUT HE DECLINED. PT BACK TO SLEEP. HE IS A/0X2. HE DENIES SI/HI/AVH. HE IS WANTING TO DISCHARGE TO HOME. BED IN LOW POSITION AND BED ALARM IS ON. ROUTINE ROUNDS TO ASSESS SAFETY AND STATUS OF PATIENT.
[2021-01-01 09:39] VITALS: BP 117/74
--- NOTE | 2021-01-01 10:56 | NUR ---
New admit [facility] admit with dementia and combativeness. Overweight with BMI 28, no wt changes and eating 75-100% of meals. presents at low nutrition risk
--- NOTE | 2021-01-01 19:28 | NUR ---
0700 ASSUMED CARE OF PATIENT, PATIENT IN BED AT THAT TIME. PATIENT TO DAYROOM AMB WITH WALKER WITH STEADY GAIT. VS 117/74, 73, 18, 97.0, 97%. MEDICATION TAKEN WHOLE WITHOUT DIFFICULTY. DENIES SI/HI, LS CLEAR, BS ACTIVE. NO C/O PAIN. PATIENT HAD VISITORS TODAY AT 1600. PATIENT CALM AND COOPERATIVE. PATIENT PRESENT IN GROUPS.
[2021-01-01 19:32] VITALS: BP 117/60
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
--- NOTE | 2021-01-02 03:57 | NUR ---
01-01-21 CARE TRANSFERRED 1899. LATER PT AAOX4, VSS, RR EVEN AND NONLABORED ON RA, PT DENIES PAIN AND SI/HI/VAH. PT PRESENTS CALM AND COOPERATIVE, BUT IS SLOW TO ARTULICATES WORDS. DURING MEDICATION ADMIN PT REPORTED HE HAD TORN HIS MUSCLE AND SCORED PAIN AT 7 ON 0-10 SCALE, PT HAS SCHEDULE MEDICATION AND PT BED WAS ADJUSTED FOR COMFORT. LATER NOTED PT SLEEPING.
[2021-01-02 13:27] VITALS: BP 143/85
--- NOTE | 2021-01-02 15:37 | NUR ---
JOSS spoke with pt's today to discuss placement. She indicated that she does not have the funding to place pt. JOSS discussed with her Medicaid and asked if she would like pt screened. Tesha said she would. JOSS submitted a request to [email or web address] for pt. SW team will continue to follow pt during his stay on this unit.
--- NOTE | 2021-01-02 15:41 | NUR ---
PATIENT HAS BEEN UP, AND OUT ON THE UNIT, AMBULATE WITH ASSIST OF ROLLER WALKER, GAIT SLOW, AND SLIGHTLY UNSTEADY. PATIENT TOOK ALL MEDICATION THIS MORNING WITH LOTS OF ENCOURAGEMENT FROM THIS COMMERCIAL DRIVER'S LICENSE DRIVER. HE IS EATING MEALS, AND DRINKING FLUID WELL. PATIENT IS FORGETFUL, AND INTERMITTENT CONFUSION NOTED. PATIENT DENIES SUICIDAL/HOMICIDAL IDEATION, HE DENIES DEPRESSION/ANXIETY. NO AGITATION OR AGGRESSIVE BEHAVIOR NOTED AT THIS TIME. PATIENT PARTICIPATES IN GROUP THERAPY. HE DENIES HAVING PHYSICAL PAIN, ORAL FLUID ENCOURAGED TAKES SIPS OF WATER. AFFECT IS FLAT/BLUNTED, MOOD IS CALM, NO SIGN OF ACUTE DISTRESS NOTED AT THIS TIME, WILL MONITOR FOR SAFETY.
[2021-01-02 19:10] VITALS: BP 99/59
--- NOTE | 2021-01-03 05:37 | NUR ---
01-03-21 CARE TRANSFERRED 0 OBSERVED PT SITTING IN DAY ROOM. LATER PT AAOX4, VSS, RR EVEN AND NONLABORED ON RA. PT DENIES OF PAIN AND SI/HI. PT PLEASANT, CALM AND COOPERATIVE. LATER PT BECAME AGITATED WITH A PEER AND RESTAURANT AREA DIRECTOR, ABLE TO DESCLATE, AND PT WAS CONFUSED AND DISORIENTATED. PT WAS ABLE TO REMAIN CALM AND NOTED PT RESTING WITH EYES CLOSED IN RECLINER. ZERO S/S OF ACUTE DISTRESS NOTED, PT WILL CONTINUE TO BE MONITOR PER [facility] PROTOCOL.
[2021-01-03 07:55] VITALS: BP 112/71
[2021-01-03 11:11] LABS: CALCIUM 9.2 mg/dL (8.5-10.1); CREATININE 1.6 mg/dL (0.7-1.3); POTASSIUM 4.9 mmol/L (3.5-5.1)
--- NOTE | 2021-01-03 12:06 | NUR ---
Alert, sitting in day room in [facility] [place] 2[place] When assessed in room he smelled of ketones. Able to stand and walk with assistance to toilet, gait slightly unsteady. When asked name he started rhyming and refused to answer, also refused to answer other orientation questions. Denies SI/HI. Breath sounds clear. Reg HR auscultated. Color pink with brisk capillary refill and palpable peripheral pulses. Dark, toro urine per toilet. Active bowel sounds over soft, flat abdomen. Refused to take meds whole but was compliant with meds crushed in yogurt. Attempted to get BG X 3 without success. Became combative, grabbing and attempting to hit with fist. Calmed down when caregivers stepped away. Ate breakfast independently. Was then very cooperative with BG, 162 post breakfast. Labs later drawn and BG was 106. Dr. Nava here evaluating pt, aware of results.
--- NOTE | 2021-01-03 12:38 | NUR ---
SW sent an email to [employer] to follow-up on the Medicaid request she sent yesterday for pt. SW team will continue to follow pt during his stay on this unit.
[2021-01-03 19:07] VITALS: BP 125/74
--- NOTE | 2021-01-04 04:02 | NUR ---
SITTING IN DAYROOM AT TABLE UPON INITIAL ASSESSMENT THIS PM. DYSHORIC MOOD-RESPONDS MINIMALLY TO GREETING FROM STAFF AND NO NOTED INTERACTION WITH PEERS. REFUSED HS MEDICATIONS STATING "I DON'T WANT THEM" NURSE REAPPROACHED SHORT TIME LATER WITH MEDS CRUSHED IN YOGURT BUT CONTINUES TO REFUSE AND APPEARS SUSPCIOUS OF STAFF-ANGRY FACIAL EXPRESSION STATING "I KNOW WHAT YOU ARE TRYING TO DO-YOU HAD BETTER GET AWAY FROM ME NOW"WHEN ASKED TO GO TO ROOM TO BED TOLD NOTCHING PRESS OPERATOR "THIS IS MY HOUSE I CAN DO WHAT I WANT" AND REFUSES TO LEAVE CHAIR IN DAYROOM-AT THIS TIME IS SITTING IN CHAIR WITH CHIN TO CHEST WITH EYES CLOSED-DEEP EVEN RESPIRATIONS NOTED. REMAINS ON HIGH FALLS RISK D/T RECENT FALL AT HOME,CONFUSION,EPISODIC ATAXIA.
--- NOTE | 2021-01-04 04:48 | NUR ---
AWAKE IN DAYROOM AT APPROX 0430-ATTEMPTED TO PLACE CHAIR ALARM PER [facility] PROTOCOL AND BECAME AGITATED INSISTING THAT HE CAN NOT SIT ON PAD-GOT UP FROM CHAIR AND ATTEMPTING TO RUN ROLLER WALKER INTO SOFA IN DAYROOM-DIFFICULT TO RIDRECT HE DOES NOT RESPOND TO VERBAL QUEING,REQUESTS FROM STAFF-BECOMES AGITATED WITH PHYSICAL REDIRECT STATING "YOU HAD BETTER BACK UP" DID FINALLY SIT IN CHAIR WITH ALARM PLACED AND WHEN QUESTIONED DOES REPORT LOW BACK PAIN "ALWAYS" AGREED TO TAKE TYLENOL FOR REPORTED PAIN HOWEVER WHEN STAFF REAPPROACHES SHORT TIME LATER WITH MEDICATION REFUSES TO TAKE-RN ATTEMPTED TO REASSURE AND ENCOURAGE COMPLIENCE BUT CONTINUES TO REFUSE-WILL CONTINUE TO MONITOR AND ENCOURAGE MED COMPLIENCE ABLE.
[2021-01-04 09:35] VITALS: BP 136/83
--- NOTE | 2021-01-04 13:23 | NUR ---
JOSS provided an update to Tesha (pt's ) and asked for her email so she could send a listing of [place] facilities that accept Medicaid from the Medicare.gov website. JOSS sent a listing to [email or web address]. JOSS team will continue to follow tp during his stay on this unit.
--- NOTE | 2021-01-04 17:12 | NUR ---
PT ASSESSED AT START OF SHIFT. VERY DROWSY MUCH OF DAY. NOT EATING AT ALL. REFUSING MEALS- DID EAT POTATO CHIPS AT LUNCH ONLY. DID TAKE MEDS WILLINGLY. AMBULATED AROUND A LITTLE AND VISITED SOME W/ OTHER PATIENTS.
[2021-01-04 19:33] VITALS: BP 109/68
--- NOTE | 2021-01-04 22:44 | NUR ---
PT SITTING IN THE DAY AREA.GETTING RESTLESS, PULLING FURNITURE, REFUSED HS MEDS. CO WORKER SAT ANS TALKED TO HIM AND HE FINALLY AGREED TO TAKE THE MEDS. PT CONTINUES TO BE RESTLESS AND WOULD NOT BE DIRECTED. PT GIVEN PRN HALDOL, WITH HELP OF SECURITY AROUND. PT IS NOW OBSERVED QUIET IN DAY AREA.
[2021-01-05 09:23] VITALS: BP 133/80
--- NOTE | 2021-01-05 10:35 | NUR ---
Pt sleeping soundly in gerichair this AM and drooling on shirt. Brought back to room for assessment where he was able to stand with assist X2. Alert and orientated to name only, states he thinks it is Franco when asked about day. Confused speech with some coherent statements at times: When replacing dentures in his mouth he stated, "I hope you washed your hands." Able to stand for several moments bearing wt but needed encouragement to stand up straight. Denies SI/HI. Fed breakfast this AM by SAMPLES AND REPAIRS PREPARER, did not appear interested in meal when placed in front of him. Took meds crushed in oatmeal. Sleeping in gerichair when not disturbed. Breath sounds clear. Reg HR auscultated. Color pink with brisk capillary refill and palpable peripheral pulses. Brief saturated with yellow urine. Active bowel sounds over soft, rounded abdomen. No documented BM in 4 days, will give milk of magnesia at lunchtime. Skin without breakdown.
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
[2021-01-05 19:56] VITALS: BP 106/66
--- NOTE | 2021-01-06 05:21 | NUR ---
01-05-21 CARE TRANSFERRED 1914 OBSERVED PT SITTING IN RECLINER IN DAY ROOM. LATER PT PRESENTS IRRITABLE AND UNCOOPERATIVE, DEESCLATION SUCCESSFULL AND PT AAOX2, VSS, RR EVEN AND NONLABORED ON RA. PT DENIES PAIN AND SI/HI. DURING MEDICATION PT HAD NO DIFFUCLTIES. LATER NOTED PT RESTING IN BED WITH EYES CLOSED. THEN PT AWOKE AND WAS AGITATED, SITUATION WAS DESSCLATED AND PT WAS ASSISTED INTO DAY ROOM, AND SITTING IN RECLINER. LATER NOTED PT RESTING WITH EYES CLOSED IN RECLINER. ZERO S/S OF ACUTE DISTRESS, PT WILL CONTINUE TO BE MONITOR PER [facility] PROTOCOL.
[2021-01-06 08:35] VITALS: BP 103/69
--- NOTE | 2021-01-06 08:40 | NUR ---
PT WANTING TO WALK IN [place] INFRONT OF A RAPID RESPONSE PT. PT TOLD TO GO AROUND. PT THREATING STAFF THAT HE WAS GOING TO HIT SOMEONE. PT UP WITH HIS WALKER. PT WATCHING WEST DOOR AND STAFF WAS COMING IN HE WAS GOING TO DOOR AND TRYING TO GET OUT. STAFF TOLD TO COME IN AND SHUT THE DOOR. PT KEEP TRYING TO GET OUT THE DOOR BY PUSHING ON THE DOOR HANDLE. SECURITY WAS CALLED. PT WAS ESCORTED TO QUIET ROOM AND HALDOL 5MG IM WAS GIVEN.
--- NOTE | 2021-01-06 09:00 | NUR ---
PT WAS ALLOWED TO COME OUT OF QUIET ROOM. PT USING WALKER AND DROOLING. PT OFFERED A KLEENEX AND FEFUSED. PT PRAYING WHEN HE WAS WALKING DOWN THE RASMUSSEN.
[2021-01-06 10:00] VITALS: BP 103/69
--- NOTE | 2021-01-06 11:14 | NUR ---
IS HERE VISITING PT AND HE IS SITTING IN CHAIR WITH DROOL ON HIS SHIRT. SHE STATED HIS SHIRT WAS WET. PT WAS DROOLING AFTER GETTING INJ THIS AM AND REFUSED TO USE A KLEENEX. PT WANTS TO TAKE HIS CELL PHONE WITH HER WHEN SHE LEAVES THIS VISIT.
--- NOTE | 2021-01-06 11:45 | NUR ---
TOOK PT CELL PHONE HOME WITH HER. SHE DIDN'T WANT HIM TO SEE THAT SHE TOOK IT DUE TO HIM POSS. GETTING UPSET.
[2021-01-06 19:27] VITALS: BP 100/67
--- NOTE | 2021-01-07 02:37 | NUR ---
01-06-21 CARE TRANSFERRED 1900 OBSERVED PT SITTING IN RECLINER IN DAY ROOM. LATER PT AAOX2, VSS, RR EVEN AND NONLABORED ON RA. PT PRESENTS IRRITABLE AND COMMUNICATION IS INAPPAROIATE. PT DENIES SI/HI AND PAIN. LATER PT REFUSED MEDICATION, AN 2ND ATTEMPT PT ALSO DENIED, THAT HE WAS TAKING A "MEDICATION HOLIDAY". 3RD ATTEMPT WAS MADE BY ANOTHER NURSE, PT REFUSED. PT PRESENTED IRRITABLE DURING INTERACTION. ZERO S/S OF ACUTE DISTRESS NOTED, PT WILL CONTINUE TO BE MONITOR PER [facility].
--- NOTE | 2021-01-07 09:24 | NUR ---
0700 ASSUMED CARE OF PATIENT, PATIENT IN BED AT THAT TIME. PATIENT UP TO DAYROOM FOR BREAKFAST USING WALKER.PATIENT AMB WITH A SLOW AND STEADY GAIT. PATIENT REFUSES TO TAKE AM MEDICATION, PATIENT STATES "I JUST NEED TO GET HOME". PATIENT QUIET AND CALM YET REFUSES TO ANSWER QUESTIONS AT THIS TIME.
[2021-01-07 09:25] VITALS: BP 109/64
--- NOTE | 2021-01-07 12:30 | NUR ---
Tesha left JOSS a msg stating that her top choices for pt are [facility], [facility], and [facility]. JOSS team will continue to follow pt during her stay on this unit. JOSS team will continue to follow pt during her stay on this unit.
--- NOTE | 2021-01-07 18:42 | NUR ---
PATIENT RECIEVED VISITOR TODAY. ATE 90% OF DINNER. PATIENT AMB IN [place] WITH WALKER AND STEADY GAIT. PATIENT CONFUSED ASKING FOR KEYS TO A CAR. CALM AND COOPERATIVE AT THIS TIME.
[2021-01-07 20:05] VITALS: BP 120/70
[2021-01-08 09:03] VITALS: BP 143/92
[2021-01-08 09:26] VITALS: BP 143/92
--- NOTE | 2021-01-08 10:56 | NUR ---
Nutrition followup: pt continues on H unit with major neurocognitive disorder with behavioral disturbance. PO varies. Noted several days where pt did refuse one meal a day. Otherwise 50-100%. Last 3 meals pt consumed 50%/80% and 100% of meals. No new weight to eval since 12/31. Would recommend obtain. Did not interview pt-is confused, irritable and inappropriate at times. Followup on new weight, if loss, can offer supplement. Continue as low risk.
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
--- NOTE | 2021-01-08 12:10 | NUR ---
SW received a call from Tesha asking for an update, and JOSS provided an update. SW team will continue to follow pt during his stay on this unit.
--- NOTE | 2021-01-08 15:39 | NUR ---
RT Progress Note- JU's participation with recreation therapy has been variable based upon his level of alertness. When awake, JU has enjoyed participating in music groups in particular. Music has also proven to be a positive aid in helping to calm him during times of increased agitation. JU has displayed some agitation and verbal aggression during RT interaction, but has been redirectable overall. POST ADOPTION COORDINATOR will continue to encourage JU's participation to decrease restlessness and agitation.
[2021-01-08 19:39] VITALS: BP 118/75
--- NOTE | 2021-01-09 02:52 | NUR ---
01-08-21 CARE TRANSFERRED 1900 OBSERVED PT SITTING IN RECLINER IN DAY ROOM. LATER PT AAOX1, VSS, RR EVEN AND NONLABORED ON RA. PT DENIES PAIN AND SI/HI. PT PRESENTS IRRITABLE BUT HAS BEEN COOPERATIVE THROUGHOUT NURSING ASSESSMENT AND DRANK 480ML OF WATER. DURING MEDICATION ADMIN PT HAD NO DIFFICULITES AND CONSUMED 240ML OF WATER. LATER PT WAS ASSISTED TO ROOM AND URINAL USED, CLOUDY YELLOW, SCANT AMOUNT OF SEDIMENT NOTED. LATER PT BECAME AGITATION, GRABBING STAFF AND BELIGERENT, THEN STARTING SWINGING ON STAFF. HCP Reilly RAYGOZA NP CONSULTED AND ORDER RECEIVED; HCP Sophie MARTINEZ NP AGREED WITH ORDERS R/T PT BEING SERVERLY AGITATED; PT CONTINUE AGGRESSIVE BEHAVIOR WITH SECURITY AND STAFF CONTIANED PT FOR SAFETY. HCP ORDERS ADMIN. LATER NOTED PT RESTING, PT WAS REPOSITION. NO S/S OF ACUTE DISTRESS, PT WILL CONTINUE TO BE MONITOR PER [facility] PROTOCOL.
[2021-01-09 08:00] VITALS: BP 118/72
--- NOTE | 2021-01-09 09:07 | EKG ---
[place] [address] [address] [facility] [place] [address] ELECTROCARDIOGRAM REPORT Name: Ana MORALES Room #: [facility] ADM IN M.R.#: [id number] Admission: 12/31/20 Attend Phys: Kane Disla DO Discharge: Date of : 47 Report #: [id number] [facility] Test Date: 2021-01-08 Test Time: 15:30:27 Pat Name: Ana MORALES Department: Room: [facility] Gender: M Stone Driller: THOMAS : 1945 Requested By: Kane Disla Order Number: [id number] MD: Dimitry Park Measurements Intervals [place] Rate: 99 P: -16 MI: 151 QRS: -29 QRSD: 81 T: -27 QT: 365 QTc: 469 Interpretive Statements Sinus rhythm Abnormal R-wave progression, early transition Inferior infarct, old Compared to ECG 12/30/2020 20:25:28 Sinus tachycardia no longer present Electronically Signed On 01-09-2021 9:07:15 CDT by Dimitry Park [email or web address] <ELECTRONICALLY SIGNED> By: Dimitry Park MD, [facility] 01/09/21906 29 29 Dimitry Park MD, [facility] /EPI
--- NOTE | 2021-01-09 11:30 | NUR ---
[facility] BREATH[facility] OKAY, RESPIRATION EVEN/UNLABORED, HE IS AROUSABLE, BUT NOT AWAKE ENOUGH TO SWALLOW MORNING MEDICATION. MORNING MEDS HAS NOT BEEN GIVEN AT THIS TIME. DR. FORD NOTIFIED. PATIENT'S /DAUGHTER VISITED , AND PATIENT SLEPT THROUGH VISIT. NO SIGN OF ACUTE DISTRESS NOTED, WILL MONITOR FOR SAFETY.
[2021-01-09 19:31] VITALS: BP 128/77
--- NOTE | 2021-01-10 04:53 | NUR ---
01-10-21 CARE TRANSFERRED 1914 OBSERVED PT SITTING IN YONY CHAIR RESTING WITH EYES CLOSED. LATER RECEIVED REPORT THAT PT WAS AGITATED. LATER PT DROWSY, EASILY AWAKEN TO VOICE, PT AAOX1, VSS, RR EVEN AND NONLABORED ON RA. OBSERVED S/S OF PAIN OR SI/HI BEHAVIORS. DURING MEDICATION ADMIN, PT STILL RESTING WITH EYES CLOSED, PT MEDICATION HOLD R/T POC. LATER PT WAS REPOSITION WITH FEET ELEVATED IN CHAIR. ZERO S/S OF ACUTE DISTRESS NOTED, PT WILL CONTINUE TO BE MONITOR PER [facility] PROTOCOL.
[2021-01-10 07:28] VITALS: BP 114/79
--- NOTE | 2021-01-10 12:03 | NUR ---
SW reviewed pt's notes to see how he did last not in preparation to send referrals for placement. SW team will continue to follow pt during her stay on this unit.
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
[2021-01-10 19:47] VITALS: BP 104/64
--- NOTE | 2021-01-11 04:37 | NUR ---
ASSESSMENT: PT REMAINS ALERT TO SELF. CALLED TO TALK WITH PT, DID NOT TALK MUCH ON THE PHONE R/T BEING CONFUSED. DID TAKE MEDS CRUSHED IN PUDDING. DID COOPERATE IN OPENING MOUTH TO RECEIVE MEDS. PT DID HAVE A DIFFICULT TIME IN TRYING TO FEED HIMSELF AFTERWARDS. DID ASSIST IN FEEDING PT ABOUT 50% OF PUDDING. VSS, AFEBRILE. REMAINED IN YONY CHAIR IN THE DAY ROOM DURING THIS SHIFT. ASSISTED WITH TOILETING PT DURING THE NIGHT. SLOW PROGRESS TOWARDS DC GOALS., WILL CONTINUE TO MONITOR.
[2021-01-11 08:45] LABS: CALCIUM 9.5 mg/dL (8.5-10.1); CREATININE 1.9 mg/dL (0.7-1.3); POTASSIUM 5.4 mmol/L (3.5-5.1)
[2021-01-11 10:29] VITALS: BP 104/85
[2021-01-11 14:58] VITALS: BP 104/85
--- NOTE | 2021-01-11 17:58 | NUR ---
Assumed pt care at 0700. Assessments completed, vss. pt was unco-operative with care and assessments. No sign of si/hi noted. No c/o pain. ambulates with a trino chair. Took meds crushed in pudding. pt refused his iv NS. It took four nurses to insert an iv on pt. NS WAS started on pt at 1200 as ordered. pt pulled iv out 1220. pt is oriented to self. pt family visited. will continue to monitor.
[2021-01-11 19:46] VITALS: BP 99/59
--- NOTE | 2021-01-12 03:58 | NUR ---
patient aox1 confused and forgetful. patient encouraged fluids. patient took hs meds with a lot of encouragement. no s/s of pain or discomfort. patient need total care with adl. patient incontient this shift pericare and barrier cream appled. fall precaution in place. patient in bed asleep at this time breathing reular nd unlaboured.
[2021-01-12 05:06] LABS: CALCIUM 9.2 mg/dL (8.5-10.1); CREATININE 1.9 mg/dL (0.7-1.3); POTASSIUM 5.5 mmol/L (3.5-5.1)
[2021-01-12 09:22] VITALS: BP 100/60
[2021-01-12 13:02] VITALS: BP 100/60
--- NOTE | 2021-01-12 13:14 | NUR ---
Assumed pt care at 0700. pt was alert and oriented to person and situation. pt was unco-operative with care and med administration. Denies si/hi. there is no c/o pain at this time. Am and 1400 meds where not given per orders. SODIUM POLYSTYRENE WAS administered to pt for HIGH potasium, per DR Gant orders. pt visited, express her concerns about his labs. Dr Krishnamurthy is aware of concerns. Water intake 1250ml at this time. pt makes toileting needs known. Blood pressure was 90/56. manual B/P 100/60. pt was incontinent x2 and a smear of BM this shift. At this time pt is in the day room awake. Will continue to monitor pt.
[2021-01-12 20:53] VITALS: BP 86/72
--- NOTE | 2021-01-12 22:00 | NUR ---
PT SITTING IN LOUNGE CHAIR IN DAY ROOM, SLOUCHED. PT RESISTIVE TO REDIRECTION AND ADL CARES. PT ABLE TO AMBULATE WITH WALKER BUT SHOULDERS SLOUCHED. PT USED RESTROOM AND WAS ASSISTED TO BED. PT HAD HS SNACK. PT
[2021-01-13 05:46] LABS: CALCIUM 8.6 mg/dL (8.5-10.1); CREATININE 1.7 mg/dL (0.7-1.3); POTASSIUM 4.2 mmol/L (3.5-5.1)
[2021-01-13 09:15] VITALS: BP 104/70
--- NOTE | 2021-01-13 15:36 | NUR ---
ASSUMED CARE AT 0710. PT ENTIRE MORNING WAS ALERT AND FRIENDLY, COOPERATIVE AND FOLLOWING SIMPLE DIRECTIONS. PT'S CAME BEFORE LUNCH AND STAYED APPROXIMATELY 1 HOUR SITTING WITH PT IN DAY ROOM. PT THEN ATE ENTIRE LUNCH. PT TOOK AM PILLS WITHOUT DIFFICULTY. AFTER LUNCH PT WALKED TO ROOM WITH USE OF WALKER AND STANDBY ASSIST OF NURSE. PT THEN TOOK NAP FOR APPROXIMATELY 1 HOUR. PT AFTER NAP APPEARS MORE CONFUSED AND PACING HALLWAY BACK AND FORTH FROM DAY ROOM TO HIS ROOM. PT NOW STATES HE WANTS BRISKET FROM WALLER AND HE THINKS HE IS AT HOME. PT BECAME AGITATED IN THE DAY ROOM WITH THE RT BECAUSE HE PICKED UP THE REMOTE AND WHEN SHE ASKED FOR IT BACK HE WAS AGITATED AND SAYING HE WAS GOING TO THROW IT ACROSS THE ROOM. RN TRIED TO DIFFUSE THE SITUATION BY OFFERING TO TRADE THE REMOTE FOR THE PHONE TO TALK TO HIS . PT AGREED AND TRADED REMOTE FOR PHONE. PT THEN SPOKE ON PHONE WITH WITH CONFUSED SPEECH ASKING WHY SHE WASN'T AT HOME. AFTER PHONE CALL PT APPEARS MORE CALM, LESS AGITATED AND AGREED TO SIT IN DAY ROOM AND HAVE A SNACK.
[2021-01-13 19:33] VITALS: BP 113/69
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
[2021-01-14 10:03] VITALS: BP 93/60
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
[2021-01-14 18:13] VITALS: BP 93/60
[2021-01-14 19:50] VITALS: BP 117/90
[2021-01-14 20:30] VITALS: BP 117/90
--- NOTE | 2021-01-14 20:42 | NUR ---
Assumed pt care at 0700. pt was was alert and oriented x4. Assessments completed, vss. pt took meds whole, no difficulty noted. Ambulates with a walker. pt was CO-OPERATIVE AND REDIRECTABLE IN THE MORNING. After lunch pt became aggresive, agitated but redirectable. visited pt. At 1420 pt was visually hallucinating. pt sat on the floor, picking up invisible hammer and butter knife. pt crawled under Manisha chair to fix invisble nails. pt was redirected and he got aggressive. Manisha chair was pulled away from pt. pt went to pull another pt Manisha chair. pt was redirected, pt continued to be aggressive and combative. MATERIAL MOVER NOTIFIED Dr Disla. IM 10mg of ziprasidone was ordered and administered to pt at 1528.CHARLIE CONTINUE TO MONITOR.
[2021-01-14 21:00] VITALS: BP 134/62
--- NOTE | 2021-01-15 01:55 | NUR ---
PATIENT HAS BEEN UP IN YONY CHAIR IN DINING ROOM TONIGHT. HE HAS SLEPT MAJORITY OF THE NIGHT. CHAIR ALARM ON AND IN PLACE. PATIENT HAS BEEN TOILETED TWICE SO FAR TONIGHT. HE BECOMES IRRITABLE AND COMBATIVE WITH CARES AT TIMES. PATIENT REFUSES TO STAY IN HIS ROOM OR SLEEP IN HIS BED. PATIENT IS SLEEPING AT THIS TIME IN THE DINING ROOM. HE TOOK HIS MEDS CRUSHED IN PUDDING TONIGHT. HE DENIES PAIN AT THIS TIME. NO SIGNS OF SI/HI/AVH. CALLED THIS EVENING TO CHECK ON HER STATUS. PATIENT WAS SLEEPING AT THAT TIME. THIS NURSE UPDATED HER.
--- NOTE | 2021-01-15 05:41 | NUR ---
PATIENT REFUSED LABS WHEN THE PULPER CAME TO DRAW LAB THIS MORNING. HE WAS TO HAVE BMP DRAWN.
[2021-01-15 07:33] LABS: CALCIUM 8.7 mg/dL (8.5-10.1); CREATININE 1.4 mg/dL (0.7-1.3); POTASSIUM 4.2 mmol/L (3.5-5.1)
--- NOTE | 2021-01-15 10:21 | NUR ---
RT Progress Note- JU continues to be present in the milieu each day. His participation in recreation therapy groups has been inconsistent as his behaviors fluctuate throughout the day. JU is most likely able to successfully participate in AM groups and later becomes agitated in the afternoons, displaying less cooperation and attention. JU particularly enjoys music and has participated in both music and exercise groups during this review period. RT team will continue to provide structured programming.
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
[2021-01-15 12:02] VITALS: BP 98/59
--- NOTE | 2021-01-15 12:11 | NUR ---
Assumed pt care at 0700.pt was alert and oriented x4. Assessments completed, vss. pt took meds whole, no difficulty noted. aMBULATES WITH A WALKER, PT HAS UNSTEADY GAIT with ambulation. Denies si/hi, denies pain at this time. CAlm and co-operative with care. no sign of acute distres noted upon assessments. Pt is currently eating lunch. pt is being encourage to take fluids. Pt make needs known to staff. will continue to monitor.
[2021-01-15 13:12] VITALS: BP 106/56
[2021-01-15 19:27] VITALS: BP 111/62
--- NOTE | 2021-01-15 20:48 | NUR ---
PT REMAINS ON 1:1. PT HAS WALKER AND IS AMBULATING IN HALLS AND CHECKING DOORS. PT AT THIS TIME PLEASANT AND TALKING WIHT STAFF ALLOWING VS AND ASSESSMENT. JOKING WITH FEMALE PEER WHO THINKS HE IS HER . BLUNTED AFFECT SLOUCHED POSTURE. GLASSES ON. PT COMPLIANT WITH MEDS AND HS SNACK.
[2021-01-16 07:30] VITALS: BP 140/84
[2021-01-16 12:24] VITALS: BP 140/84
--- NOTE | 2021-01-16 14:25 | NUR ---
1425 RESUMMED CARE FROM OVERNIGHT SHIFT THIS AM, PATIENT IS NOW OFF ONE TO ONE. PATIENT IN DAY ROOM SITTING QUIET PATIENT ATE BREAKFAST TOOK MEDICATION WITHOUT INCIDENCE. PATIENT UNABLE TO TELL ME ABOUT SI/HI/AH/VH DUE TO COGNITION DO. PATIENT IS ALERT ORIENTED TO SELF ONLY PATIENT IS WALKING AROUND UNIT 2 TWO HOURS FOR POSITION CHANGE. PATIENTS ABDOMEN SOFT BOWEL SOUNDS PRESENT. PATIENTS LUNGS CLEAR PATIENT IS MORE REDIRECTABLE THIS SHIFT AND HAS NOT DISPLAYED LIT BEHAVIORS. WILL CONTINUE TO MONITOR PATIENT FOR SAFETY AND BEHAVIORS.
[2021-01-16 19:27] VITALS: BP 107/62
[2021-01-16 20:00] VITALS: BP 107/62
--- NOTE | 2021-01-17 01:43 | NUR ---
ASSESSMENT: PT REMAIN ALERT TO SELF. DID TAKE MEDS WITHOUT DIFFICULTY CRUSHED IN ICE CREAM. TOLERATED HS SNACK OF LEMON COOKIES. INCOMT, TAKEN TO ROOM FOR BRIEF AND CLOTHING CHANGE. VSS, AFEBRILE. CALLED TO CHECK ON THE STATUS OF THE PT. SLEPT IN THE YONY CHAIR DURING THE NIGHT. SLOW PROGRESS TOWARDS DC GOALS. WILL CONTINUE TO MONITOR.
[2021-01-17 08:58] VITALS: BP 115/69
[2021-01-17 14:16] VITALS: BP 115/69
--- NOTE | 2021-01-17 18:08 | NUR ---
Assumed pt care at 0700. pt was alert and oriented to person. pt was confused. sleeping at noon but was arousable. pt was calm and co-operative. asked question about his meds. Denies si/hi, Denies pain. Assessments completed, vss. pt took meds whole with thin liquid, no difficulty noted. Ambulates with a walker. pt daughter visited pt at AM hours. Pt visited at PM hours. pt spoke to typewriters functional tester regarding her concerns about D/C and pt progress. pt also noted pt was mixing his dentures. Bottom denture was found in the med room. then noted pt was mixing upper dentures. She expressed that she will appreciate it, if the dentures were found. At this time pt is relaxing in the day room. Dr Disla was notified about pt concerns. Will continue TO MONITOR PT.
[2021-01-17 20:13] VITALS: BP 100/72
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
[2021-01-18 09:02] VITALS: BP 114/79
--- NOTE | 2021-01-18 13:01 | NUR ---
JOSS received a phone call from Tesha concerning pt having a spend down. JOSS spoke with her after her visit with her and explained that the spend down will not apply once pt is switched to [place] medicaid. She said ok. JOSS also provided to her an update on pt's behaviors and asked Dr. Disla to explain to her the med regimen he would like to try with pt. SW team will continue to follow pt during his stay on this unit.
--- NOTE | 2021-01-18 15:00 | NUR ---
Very sleepy this AM, in gerichair with lap josé miguel in place. Brief noted to be saturated with yellow urine. Left in room to gather supplies and get help from AUDIO/VISUAL OPERATOR. Unable to get pt to stand, AUDIO/VISUAL OPERATOR went to call security. Kept encouraging pt to stand and was able to remove pants and place new brief and pants. AUDIO/VISUAL OPERATOR returned and was then able to get pt to stand briefly and pull up pant. Brief that was in place appeared to be dry at that time. Pt. was also able to state that his name was LG. Took meds crushed in apple sauce. More awake at lunch, eating slowly but independently. Breath sounds clear. Reg HR auscultated. Color pink with brisk capillary refill and palpable peripheral pulses. Active bowel sounds over soft, rounded abdomen. Currently sitting in day room with peers.
[2021-01-18 19:43] VITALS: BP 102/56
--- NOTE | 2021-01-18 23:42 | NUR ---
COMPLIENT WITHTAKING HS MEDS CRUSHED IN ICE CREAM-CONFUSED AND RESTLESS FROM [id number], AMBULATED IN HALLWAYS X 2 AND ASSISTED TO BR X2 BUT CONTINUES RESTLESS AND VERY CONFUSED-LOOKING FOR TRUCK KEYS. ASSISTED INTO BED AT 2300 UPON GOING TO ROOM APPEARED VERY TIRED AND WOULD FALL ASLEEP FOR 2-3 MINUTE INTERVALS-AT THIS POINT WAS UNABLE TO AMBULATE SHABBIR DESPITE TWO STAFF ASSISTING.PLACED IN BED-POSITIONED FOR COMFORT AND SIDE RAILS X 3 CONTINUED TO ATTEMPT TO GET OUT OF BED STATING HE WAS LOOKING FOR HIS TRUCK KEYS BUT ALLOWS STAFF TO PUT LEGS BACK INTO BED-WILL REMAIN AT BEDSIDE FOR CONTINUED RESTLESSNESS,HIGH FALLS RISK,
--- NOTE | 2021-01-19 06:29 | NUR ---
RN AT BEDSIDE PROVIDING CONSTANT OBSERVATION UNTIL PT FELL ASLEEP AT 0030-FROM APPROX 2230 WHEN BROUGHT TO ROOM,TOILETED AND PLACED IN BED WOULD CLOSE EYES AND SLEEP FOR SHORT INTERVALS AND THEN WAKE UP AND TRIGGER BED EXIT ALARM-DIFFICULT TO REDIRECT AT TIMES AND AT ONE POINT BEGAN TO YELL "HELP,HELP-I GOT TO GET TO MY TRUCK"REMAINED IN ROOM 1;1 WITH NURSING BUT DID SIT UP IN GERICHAIR-LEANING OVER FREUNTLY TO GRAB LEGS OF [id number] TO PULL ON WIRES UNDER BED AND BECOMES AGITATED YELLING FOR HIS KNIFE-"GODDAMIT WOMAN DON'T JUST SIT THERE AND LOOK STUPID GET MY DERRICK KNIFE" DID HAVE SMALL BM IN BEDSIDE COMMODE, ATTEMPTING TO CRAWL OVER SIDE RAILS AND AT ONE POINT FELL ASLEEP WITH LEGS OVER RAIL-THEN CRAWLED AROUND IN BED WITH FEET TOWARD HEAD OF BED. DID EVENTUALLY FALL ASLEEP AT APPROX. BETWEEN [phone]. UP X2 TO USE TOILET DURING NIGHT WITH SMALL BM
[2021-01-19 09:40] VITALS: BP 102/56
[2021-01-19 10:31] VITALS: BP 117/70
--- NOTE | 2021-01-19 16:14 | NUR ---
ASSUMED CARE AT 0700 TODAY. PT. IN HIS BED, GOTTEN UP BY STAFF. HE CAME ONTO THE UNIT, DRESSED TO EAT BREAKFAST. HE TOOK HIS MORNING MEDICATIONS WITHOUT PROBLEMS NOTED. HE WAS COOPERATIVE WITH ASSESSMENT. HE WAS NOTED TO BE SITTING ON THE UNIT, ASLEEP, DROOLING ON HIS SHIRT. HE HAS NOT CAUSED ANY COMMOTION TODAY TO THIS POINT. HE HAS COOPERATIVE WITH CHANGING HIS YELLOW SHIRT. HE AMBULATES THE UNIT WITH A WALKER, ASSISTED BY STAFF TIMES ONE OR TWO. NO NEW PROBLEMS NOTED OR VOICED. WILL CONTINUE TO MONITOR.
[2021-01-19 19:53] VITALS: BP 100/63
--- NOTE | 2021-01-20 03:32 | NUR ---
patient aox1 confused and forgetful. no aggression noted this shift. patient had a flat affect, no eye contact. patient incontient pericare and barrier cream applied. patient took meds with a lot of encouragement.fluids encouraged. fall precaution in place. patient in bed asleep at this time breathing regular and unlaboured.
[2021-01-20 04:58] LABS: CALCIUM 8.9 mg/dL (8.5-10.1); CREATININE 1.5 mg/dL (0.7-1.3); POTASSIUM 4.7 mmol/L (3.5-5.1)
[2021-01-20 07:55] VITALS: BP 159/66
[2021-01-20 08:00] VITALS: BP 159/66
--- NOTE | 2021-01-20 13:15 | NUR ---
PATIENT CARE ASSUMED AT 0700 - SITTING IN YONY CHAIR IN DINING [place]. SLEEPING AT CHANGE OF SHIFT. APPROACHED WITH MORNING MEDICAIONS DURING BREAKFAST. STATED SLEPT WELL - CALM AND POLITE. TOOK MEDICATIONS WITH WATER - NO ISSUES. ATE WELL 75 PERCENT OF BREAKFAST AND LUNCH. PATIENT NEEDS ASSISTANCE TOLLETING 2 PERSON ENDEAVOR. NO AGITATION OR IRRITATION NOTED. NO PAIN WHEN ASSESSED. PATIENT HAS BEEN DOZING OFF AND ON IN YONY CHAIR AFTER MEALS. CALLED TO CHECK ON EARLIER IN AM. VISITATION WENT WELL AT 10:45 - WILL CONTINUE TO MONITOR PATIENT FOR SAFETY AND ANY BEHAVORIAL CHANGES OR CONCERNS AND ADDRESS ACCORDINGLY.
[2021-01-20 19:34] VITALS: BP 110/67
--- NOTE | 2021-01-21 03:29 | NUR ---
patient aox2 confused and forgetful. patient ambulates in the hallway with steady gaits. patient was calm and cooperative with meds and care. patient took meds whole. patient encouraged fluids. no agression or agitation noted this shift. patient needs minimum assistance with adl, bed mobility, transfer and toileting. fall precaution in place. patient in bed asleep at this time breathing regular and unlaboured.
[2021-01-21 09:22] VITALS: BP 123/74
--- NOTE | 2021-01-21 09:35 | NUR ---
PT ALERT AND ORIENTED TIMES THREE WITH BRIGHT AFFECT. VSS. PT DENIES PAIN/SOA/SI/HI/AH/VH. PT TOLERATES MEDS AND MEALS. PT INTERACTS WELL WITH STAFF AND PEERS, AND ATTENDS GROUPS. PT PROGRESSING TOWRADS POC GOALS.
--- NOTE | 2021-01-21 13:52 | NUR ---
Pt's Tesha was on the unit to visit pt. SW spoke with her briefly and provided to her and her daugher an update. JOSS said if pt continues with good behavior she will submit referrals beginning tomorrow. SW team will continue to follow pt during her stay on this unit.
--- NOTE | 2021-01-21 14:24 | NUR ---
RT Progress Note- LG continues to be present in the milieu each day as well as present in many recreation therapy groups. LG continues to respond positively to music groups and participates well in exercise as well. He has not shown aggression during RT interaction this review period. WELFARE MANAGER will continue to engage pt.
[2021-01-21 20:09] VITALS: BP 98/67
[2021-01-21 20:15] VITALS: BP 98/67
--- NOTE | 2021-01-22 06:06 | NUR ---
Pt's A/OX3,VSS. Denies pain, SI/HI. Up with AX1 RW in hallway. Incontinent of B&B. Took HS meds whole without any problems noted. PO intake encouraged;and pt compliant. Pt has been up in the day room since 030 on the chair resting with eyes closed. Will continue to monitor pt.
[2021-01-22 09:02] VITALS: BP 102/58
--- NOTE | 2021-01-22 11:41 | NUR ---
Nutrition followup: Pt eating better, 75-100% of recent meals, Nepro daily recorded 01/19. Renal diet. Otherwise not being recorded. No weight since 12/31. Hyperkalemia resolved. Has hx solitary kidney. pt with recent good behavior, attempting to find facility placement. REC obtain new weight. Low risk.
--- NOTE | 2021-01-22 12:12 | NUR ---
JOSS reviewed pts notes and saw he has now had 3 days of good behavior. JOSS sent referrals to the following: [facility] - referral sent 01/22/2021 [facility] - referral sent 01/22/2021 [facility]- referral sent 01/22/2021 [facility] - referral sent 01/22/2021 [facility] - referral sent 01/22/2021 [facility] - referral sent 01/22/2021 [facility] - Denied. No memory care. [facility] - Denied. Located in [place]. Not eligible for [place] Medicaid. JOSS provided an update to pt's via email. SW team will continue to follow pt during his stay on this unit.
--- NOTE | 2021-01-22 15:19 | NUR ---
Assumed pt care at 0700. pt was alert and oriented to person, place, and situation. Calm and co-OPERATIVE WITH CARE. Pt took meds whole, no difficulty noted. Ambulates with a walker. pt has unsteady gait. Assessments completed, vss. Makes needs known to staff. MEDS administered as ordered. Denies si/hi. At this time pt denies pain. No sign of acute distress noted upon assessments. pt is currently sleeping in his Manisha chair. will continue to monitor.
[2021-01-22 20:00] VITALS: BP 105/65
[2021-01-22 20:44] VITALS: BP 105/65
--- NOTE | 2021-01-23 03:50 | NUR ---
PATIENT WAS SITTING AT A TABLE IN DAYROOM VISITING WITH A PEER AT SHIFT CHANGE THIS EVENING. HE WAS CALM AND COOPERATIVE. HE WAS CORDIAL WHEN SPOKEN TOO. PATIENT WALKED AROUND DAYROOM SOME WITH HIS WALKER. HIS GAIT IS NOT STEADY AND HE WAS ENCOURAGED TO SIT DOWN. PATIENT ASKED TO SIT IN RECLINER. PATIENT SAT IN RECLINER WITH CHAIR ALARM ON UNTIL HE WAS ASSISTED TO BATHROOM AND TO BED LATER ON. PATIENT HAS BEEN CONTINENT AND USES THE TOILET OR THE URINAL. HE DENIES PAIN/SI/HI/AVH. HE DID ASK TO USE THE PHONE TO CALL HIS DEONTE. DIALED PHONE FOR PATIENT AND HE HAD TO LEAVE A VM FOR DEONTE ON THE PHONE. HE TOOK HIS MEDS WHOLE WITH WATER. PATIENT APPEARS TO BE RESTING WITH EYES CLOSED. BED IN LOW POSITION AND BED ALARM IS ON. ROUTINE ROUNDS TO ASSESS SAFETY AND STATUS OF PATIENT.
[2021-01-23 09:38] VITALS: BP 95/61
--- NOTE | 2021-01-23 12:55 | NUR ---
JOSS received a call from Meryl with [facility] stating that [facility] does not have a male memory care unit, and do not have openings for pt. However, both [facility] and [facility] do. JOSS tentatively said [facility], but that she will discuss this with pt's . Abeba with [facility] asked SW to fax over pt's notes for his entire length of stay so they may get a pattern of his behaviors as they are not a behavioral unit. JOSS faxed these docs. JOSS spoke with pt's Tesha as she was present for visitation about [facility]. She said that was pretty far. JOSS explained that at this time she only has 1 confirmed acceptance for pt and pt's insurance is no longer covering his stay as he does not meet criteria to be on this unit. JOSS explained that pt can always be moved to another facility; and if he goes to [facility] he can be moved to another facility easily should she wish to do so. JOSS also explained that if she would prefer [facility], they can accept pt and then transport him from [facility] if that is her desire. She asked JOSS to check into that information. JOSS contacted [facility] who confirmed pt can be transferred. She said that they will likely want to see at least 1 week of good behavior from pt at new facility before tranferring him to theirs. She asked SW to fax a [id number] in preparation for pt to tranfer there in the near future. JOSS provided this update to Tesha who agreed to that plan. JOSS contacted Meryl who said she will arrange transportation for pt between [id number]. JOSS faxed to [facility] a copy of pt's [id number] SW team will continue to follow pt during his stay on this unit.
[2021-01-23] MEDS ORDERED: BAYER CHEWABLE81 MG PO (13:18)
[2021-01-23] MEDS ORDERED: LIPITOR40 MG PO (13:18)
[2021-01-23] MEDS ORDERED: TRAZODONE HCL100 MG PO (13:19)
[2021-01-23] MEDS ORDERED: CHLORPROMAZINE25 M1 PO (13:19)
[2021-01-23] MEDS ORDERED: PEPCID20 MG PO (13:20)
[2021-01-23] MEDS ORDERED: B-12500 MCG PO (13:20)
[2021-01-23] MEDS ORDERED: PT HOME MEDICATION MISCELL (13:20)
--- NOTE | 2021-01-23 15:08 | NUR ---
Assumed pt care at 0700. pt was alert and oriented x4. calm and co-operative with care. Denies si/hi. Denies pain. Assessments completed, vss. No sign of acute distress upon assessments. PT TOOK MEDS whole, no difficulty noted. Ambulate with a walker. Pt was DC at 1545 via w/c. DC with DC summary, instrution, all his belongings. pt was accompanied by functional tester typewriters, and [facility] staff. Report was called to Jason at 1324.
--- NOTE | 2021-01-23 15:19 | NUR ---
JOSS D/C Note JOSS faxed discharge docs for pt to [facility] including pt's [id number]. JOSS discovered that pt does not have a DPOA document. According to pt's , during pt's medical stay pt filled out DPOA document, but the social work specialist on that unit could not find a notary that day so the document had not been notarized. JOSS informed her [facility] Director and Newborn Hearing Screener. JOSS contacted Meryl with [facility] and provided to her an update. She informed JOSS that pt cannot be on a secured unit without the document. However, she said they do utilize a mobile notary service who can come and meet with pt and to have that document signed. JOSS provided this update to Tesha. No other needs for JOSS team to address at this time.
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
== END 2021-01-23 14:45 | DRG 884 ==
LOC: SBH
PROVIDERS: Hospitalist; Internal Medicine; ADMIT Psychiatry & Neurology Psychiatry; ATTEND Psychiatry & Neurology Psychiatry
DX: F01.51 Vascular dementia, unspecified severity, with behavioral disturbance (principal); N17.9 Acute kidney failure, unspecified; N18.9 Chronic kidney disease, unspecified; E78.5 Hyperlipidemia, unspecified; K21.9 Gastro-esophageal reflux disease without esophagitis; I12.9 Hypertensive chronic kidney disease with stage 1 through stage 4 chronic kidney disease, or unspecified chronic kidney disease; I95.9 Hypotension, unspecified; E87.5 Hyperkalemia; I25.10 Atherosclerotic heart disease of native coronary artery without angina pectoris; Z85.46 Personal history of malignant neoplasm of prostate; Z95.5 Presence of coronary angioplasty implant and graft
CPT/HCPCS: 10880

== ENCOUNTER 2021-09-24 10:52 | Emergency (ER) | payer OTHER ==
[~2021-09-24] VITALS: Ht 185.4 cm; Wt 90.3 kg
[~2021-09-24 10:52] MED LIST changes: +ASA81BEC PO; +B-12500 MCG PO; +BAYER CHEWABLE81 MG PO; +CHLORPROMAZINE25 M1 PO; +LIPITOR40 MG PO; +PEPCID20 MG PO; +PT HOME MEDICATION MISCELL; +TRAZODONE HCL100 MG PO
[2021-09-24] MEDS ORDERED: ZPAK PO ×2 (12:19→12:45)
[2021-09-24 12:44] VITALS: BP 133/76
== END 2021-09-24 12:44 | disposition home or self-care (01) ==
LOC: ER 10:52
DX: J06.9 Acute upper respiratory infection, unspecified (principal); Z20.822 Contact with and (suspected) exposure to COVID-19; J40 Bronchitis, not specified as acute or chronic; I10 Essential (primary) hypertension; E78.5 Hyperlipidemia, unspecified; Z91.041 Radiographic dye allergy status; Z91.02 Food additives allergy status